=== PATIENT | female | born 1960 | race Caucasian/White ===

== ENCOUNTER 2020-03-22 17:58 | Emergency (ER) | payer OTHER ==
[2020-03-22 18:44] VITALS: BP 147/85; PULSE 99; BMI 30.8
[2020-03-22 18:45] VITALS: TEMP 97.5
== END 2020-03-22 20:54 | disposition home or self-care (01) ==
LOC: JER 17:58
DX: J06.9 Acute upper respiratory infection, unspecified (principal)
CPT/HCPCS: 71045-TC-FY; 87804; 99284-25; C9803; U0003

== ENCOUNTER 2022-12-21 13:56 | Emergency (ER) | payer OTHER ==
[2022-12-21 14:02] VITALS: BP 175/71; PULSE 87; RESP 20; TEMP 98; BMI 31.2
[2022-12-21] MEDS ORDERED: LIDOCAINE HCL 1%, 10 MG/ML (50 mL VIAL) SQ ONE (14:38)
[2022-12-21] MEDS ORDERED: LIDOCAINE HCL 1%, 10 MG/ML (10ML VIAL) MDV ONE (14:38)
== END 2022-12-21 15:00 | disposition home or self-care (01) ==
LOC: JERFT 13:56 → JER 13:56 → JERFT 15:00
PROC: 0S9G3ZZ Drainage of Left Ankle Joint, Percutaneous Approach (ICD-10-PCS; principal; 2022-12-21)
DX: M25.571 Pain in right ankle and joints of right foot (principal); M71.371 Other bursal cyst, right ankle and foot; R22.41 Localized swelling, mass and lump, right lower limb
CPT/HCPCS: 99282-25

== ENCOUNTER 2024-09-09 05:24 | Emergency (ER) | payer OTHER ==
[2024-09-09 05:29] VITALS: BP 126/77; PULSE 82; RESP 16; TEMP 98.1; BMI 29.2
[2024-09-09] MEDS ORDERED: LIDOCAINE 4% PATCH TP ONE (06:24)
[2024-09-09] MEDS ORDERED: METHOCARBAMOL 500 MG TABLET ONE (06:25)
[2024-09-09] MEDS ORDERED: IBUPROFEN 600 MG TABLET (FP) PO ONE (06:25)
[2024-09-09] MEDS: LIDOCAINE 5% TOPICAL PATCH TP ONE (06:34)
[2024-09-09] MEDS: IBUPROFEN 600 MG TABLET (FP) PO ONE (06:35)
[2024-09-09] MEDS: METHOCARBAMOL 500 MG TABLET PO ONE (06:35)
[2024-09-09] MEDS ORDERED: LIDOCAINE PATCH REMOVAL MC ONE (19:00)
== END 2024-09-09 08:21 | disposition home or self-care (01) ==
LOC: JER 05:24
DX: M54.2 Cervicalgia (principal); H92.02 Otalgia, left ear; M25.511 Pain in right shoulder; M25.512 Pain in left shoulder
CPT/HCPCS: 70360-TC-FY; 87651; 99284-25